=== PATIENT | female | born 1980 | race Asian ===

== ENCOUNTER 2016-05-24 00:01 | Inpatient (IN) | payer SELFPAY ==
[~2016-05-24] VITALS: Ht 165 cm; Wt 73.5 kg
[2016-05-24] MEDS ORDERED: LACTATED RINGERS 1,000 ML IV SCH (00:22)
[2016-05-24 01:15] VITALS: BP 115/72
[2016-05-24] MEDS ORDERED: OXYTOCIN 10 UNITS/ML VIAL ONE ×2 (02:12→02:19)
[2016-05-24] MEDS ORDERED: ePHEDrine 50 MG/ML VIAL ONE (02:12)
[2016-05-24] MEDS ORDERED: ceFAZolin 1,000 MG VIAL ONE ×2 (02:12→02:30)
[2016-05-24] MEDS ORDERED: BUPIVACAINE-MPF 0.75% 10 ML VIAL INJ ONE (02:12)
[2016-05-24] MEDS ORDERED: TRIAMCINOLONE 40 MG/ML 5ML VIAL ONE (02:18)
[2016-05-24] MEDS ORDERED: METHYLERGONOVINE 0.2 MG/ML AMP IM PRN (02:20)
[2016-05-24] MEDS ORDERED: oxyCODONE/APAP 5/325 MG 1 TAB TAB PO PRN (02:20)
[2016-05-24] MEDS ORDERED: MEASLES, MUMPS, AND RUBELLA 1 VIAL SQVAC PRN (02:20)
[2016-05-24] MEDS ORDERED: TEMAZEPAM 15 MG CAP PO PRN (02:20)
[2016-05-24] MEDS ORDERED: TRIMETHOBENZAMIDE 200 MG/2 ML SYR IM PRN (02:20)
[2016-05-24] MEDS ORDERED: MORPHINE PRES FREE 10 MG/10 ML AMP IV ONE (02:22)
[2016-05-24] MEDS ORDERED: fentaNYL 0.05 MG/ML VIAL ONE (02:22)
[2016-05-24] MEDS ORDERED: CITRIC ACID/SODIUM CITRATE 30 ML UDC ONE (02:30)
[2016-05-24] MEDS ORDERED: ONDANSETRON 4 MG/2 ML VIAL IVP PRN ×2 (02:55)
[2016-05-24] MEDS ORDERED: NALOXONE 0.4 MG/ML VIAL IVP PRN ×3 (02:55)
[2016-05-24] MEDS ORDERED: diphenhydrAMINE 50 MG/ML VIAL IVP PRN (02:55)
[2016-05-24] MEDS ORDERED: KETOROLAC 60 MG/2 ML VIAL IM PRN (02:55)
[2016-05-24] MEDS ORDERED: NALBUPHINE 10 MG/ML AMP IVP PRN (02:55)
[2016-05-24] MEDS ORDERED: diphenhydrAMINE 50 MG/ML VIAL ONE (03:37)
[2016-05-24] MEDS ORDERED: OXYTOCIN 20 UNITS/LR PREMIX 1,000 ML IV ONE (03:37)
[2016-05-24] MEDS ORDERED: ONDANSETRON 4 MG/2 ML VIAL ONE (03:41)
[2016-05-24] MEDS ORDERED: METHYLERGONOVINE 0.2 MG/ML AMP ONE (04:15)
--- NOTE | 2016-05-24 12:31 | NUR ---
PATIENT HAS BEEN SCREENED AND CATEGORIZED LOW NUTRITION RISK. PATIENT WILL BE SEEN WITHIN 7 DAYS OF ADMISSION. 05/31/16 ELAINE MORTON; HAY, RD
[2016-05-24] MEDS: OXYTOCIN 20 UNITS/LR PREMIX 1,000 ML IV SCH ×2 (12:41→20:29)
[2016-05-24] MEDS: DOCUSATE SOD/SENNA 50/8.6 MG 1 TAB PO SCH (21:15)
[2016-05-25] MEDS ORDERED: INFLUENZA VIRUS VACCINE QUAD 0.5 ML SYR IMVAC SCH ×2 (02:20→10:30)
[2016-05-25] MEDS: HYDROcodone/APAP 5/325 MG 1 TAB TAB PO PRN ×4 (05:07→22:31)
[2016-05-25] MEDS ORDERED: BETHANECHOL 5 MG TAB PO SCH (08:00)
[2016-05-25] MEDS: IBUPROFEN 800 MG TAB PO PRN (08:06)
[2016-05-25] MEDS: SIMETHICONE 80 MG TAB.CHEW PO PRN ×3 (08:06→18:14)
[2016-05-25] MEDS ORDERED: SODIUM PHOSPHATE 118 ML ENEM RC PRN (12:55)
[2016-05-25] MEDS: DOCUSATE SOD/SENNA 50/8.6 MG 1 TAB PO SCH (21:00)
[2016-05-26] MEDS: HYDROcodone/APAP 5/325 MG 1 TAB TAB PO PRN (05:46)
[2016-05-26] MEDS: SIMETHICONE 80 MG TAB.CHEW PO PRN ×2 (12:52→17:59)
[2016-05-26] MEDS: IBUPROFEN 800 MG TAB PO PRN (17:59)
[2016-05-26] MEDS: DOCUSATE SOD/SENNA 50/8.6 MG 1 TAB PO SCH (20:47)
== END 2016-05-27 14:10 | disposition home or self-care (01) | DRG 766 ==
LOC: MLD 00:01 → MFCC 02:30
PROVIDERS: ADMIT Obstetrics & Gynecology; ATTEND Obstetrics & Gynecology
PROC: 10D00Z1 Extraction of Products of Conception, Low, Open Approach (ICD-10-PCS; principal; 2016-05-24 01:45)
PROC: 3E0234Z Introduction of Serum, Toxoid and Vaccine into Muscle, Percutaneous Approach (ICD-10-PCS; 2016-05-25)
DX: O34.211 Maternal care for low transverse scar from previous cesarean delivery (principal); Z37.0 Single live birth; Z86.19 Personal history of other infectious and parasitic diseases; Z3A.39 39 weeks gestation of pregnancy; Z23 Encounter for immunization